=== PATIENT | female | born 1965 | race Caucasian/White ===

== ENCOUNTER 2017-12-05 20:00 | Inpatient (IN) | payer MEDICAID ==
[~2017-12-05 20:00] MED LIST: ENOX80DI9 SQ; OXYB5XL PO; PRAZ2 PO; SERT50TA12 PO; WARF5 PO
[2017-12-05 20:15] VITALS: BP 122/80
[2017-12-05] MEDS ORDERED: MAG HYDROX/AL HYDROX/SIMETH ES 30 ML SUSPENSION UDCUP PO PRN (21:30)
[2017-12-05] MEDS ORDERED: LORazepam 2 MG TABLET PO PRN (21:30)
[2017-12-05] MEDS ORDERED: HALOPERIDOL 5 MG TABLET PO PRN (21:30)
[2017-12-05] MEDS ORDERED: MAGNESIUM HYDROXIDE SUSPENSION 30 ML UDCUP PO PRN (21:30)
[2017-12-05] MEDS: OLANZapine 5 MG TABLET PO SCH (21:46)
[2017-12-06 08:30] VITALS: BP 123/72
[2017-12-06] MEDS ORDERED: PRAZOSIN HCL 2 MG CAPSULE PO SCH (09:00)
[2017-12-06] MEDS: OXYBUTYNIN CHLORIDE 5 MG ER TABLET PO SCH ×2 (09:02→16:16)
[2017-12-06] MEDS: FLUoxetine HCL 20 MG CAPSULE PO SCH (09:03)
[2017-12-06] MEDS: NICOTINE 21 MG/24 HOUR PATCH TD SCH (11:12)
[2017-12-06 11:18] VITALS: BP 106/77
[2017-12-06] MEDS: METHADONE HCL 10 MG TABLET PO SCH (11:20)
[2017-12-06] MEDS: WARFARIN SODIUM 5 MG TABLET PO SCH (16:16)
[2017-12-06] MEDS ORDERED: ACETAMINOPHEN 325 MG TABLET PO PRN (16:30)
[2017-12-06] MEDS: OLANZapine 5 MG TABLET PO SCH (20:56)
[2017-12-06 21:15] VITALS: BP 117/74
[2017-12-07 05:38] VITALS: BP 125/61
[2017-12-07 06:37] LABS: BASOPHILS % (AUTO) 1.2 % (0.0-2.0); EOSINOPHILS % (AUTO) 2.2 % (1.0-6.0); HEMATOCRIT 35.7 % (36-46); HEMOGLOBIN 11.9 g/dL (12.0-16.0); LYMPHOCYTES # (AUTO) 1.6 K/uL (1.0-4.8); LYMPHOCYTES % (AUTO) 30.1 % (22.0-44.0); MEAN CORPUSCULAR HEMOGLOBIN 26.1 pg (26.0-34.0); MEAN CORPUSCULAR HGB CONC 33.3 G/dL (31.0-37.0); MEAN CORPUSCULAR VOLUME 78 fL (80-100); MONOCYTES # (AUTO) 0.4 K/uL (0.1-1.0); MONOCYTES % (AUTO) 7.2 % (2.0-9.0); NEUTROPHILS # (AUTO) 3.1 K/uL (1.8-7.7); NEUTROPHILS % (AUTO) 59.3 % (40.0-70.0); PLATELET COUNT (AUTO) 218 K/uL (150-450); RED BLOOD CELL COUNT(AUTO) 4.55 MIL/uL (4.00-5.20); RED CELL DISTRIBUTION WIDTH 17.1 % (11.5-14.5)
[2017-12-07 06:42] LABS: PROTHROMBIN TIME 10.4 SEC (9.4-11.6)
[2017-12-07 07:20] LABS: HEMOGLOBIN A1C 5.4 % (4.5-6.2)
[2017-12-07 07:29] LABS: ALANINE AMINOTRANSFERASE 36 U/L (12-78); ALKALINE PHOSPHATASE 78 U/L (46-116); ANION GAP 8 mmol/L (8-16); ASPARTATE AMINOTRANSFERASE 18 U/L (15-37); BILIRUBIN,TOTAL 0.3 mg/dL (0.1-1.0); CALCIUM, TOTAL 8.5 mg/dL (8.8-10.5); CARBON DIOXIDE 26 mmol/L (22-29); CHLORIDE 103 mmol/L (98-107); CHOL/HDL RATIO 3.2 (3.9-5.7); CHOLESTEROL 143 mg/dL (131-200); GLOMERULAR FILTR. RATE CALC > 60 mL/min (>60); GLUCOSE,RANDOM 116 mg/dL (70-110); HDL CHOLESTEROL 45 mg/dL (40-60); LDL CHOL (CALC.) 75 mg/dL (0-130); POTASSIUM 4.1 mmol/L (3.5-5.1); SODIUM SERUM 137 mmol/L (136-145); TOTAL PROTEIN, SERUM 6.4 g/dL (6.4-8.2); TRIGLYCERIDES 113 mg/dL (15-150); UREA NITROGEN, BLOOD 14 mg/dL (7-18)
[2017-12-07 08:06] LABS: THYROID STIMULATING HORMONE 1.95 uIU/mL (0.36-3.74)
[2017-12-07] MEDS: OXYBUTYNIN CHLORIDE 5 MG ER TABLET PO SCH ×2 (08:32→17:00)
[2017-12-07] MEDS: METHADONE HCL 10 MG TABLET PO SCH (08:33)
[2017-12-07] MEDS: FLUoxetine HCL 20 MG CAPSULE PO SCH (08:33)
[2017-12-07] MEDS: NICOTINE 21 MG/24 HOUR PATCH TD SCH (08:35)
[2017-12-07 09:44] VITALS: BP 118/61
[2017-12-07] MEDS: WARFARIN SODIUM 5 MG TABLET PO SCH (17:52)
[2017-12-07 19:13] VITALS: BP 119/66
[2017-12-07] MEDS: OLANZapine 5 MG TABLET PO SCH (20:12)
[2017-12-08 07:19] LABS: INR 1.1 (0.9-1.1); PROTHROMBIN TIME 11.4 SEC (9.4-11.6)
[2017-12-08] MEDS: METHADONE HCL 10 MG TABLET PO SCH (08:08)
[2017-12-08] MEDS: FLUoxetine HCL 20 MG CAPSULE PO SCH (08:08)
[2017-12-08] MEDS: NICOTINE 21 MG/24 HOUR PATCH TD SCH (08:08)
[2017-12-08] MEDS: OXYBUTYNIN CHLORIDE 5 MG ER TABLET PO SCH ×2 (08:08→16:30)
[2017-12-08 09:57] VITALS: BP 99/58
[2017-12-08] MEDS: FLUoxetine HCL 10 MG CAPSULE PO SCH (12:30)
[2017-12-08 16:25] VITALS: BP 117/74
[2017-12-08] MEDS: ACETAMINOPHEN 325 MG TABLET PO PRN (16:30)
[2017-12-08] MEDS: WARFARIN SODIUM 5 MG TABLET PO SCH (16:30)
[2017-12-08] MEDS: HYPROMELLOSE 0.5% 15 ML OPHTHALMIC SOLUTION OU PRN (16:32)
[2017-12-08] MEDS: OLANZapine 5 MG TABLET PO SCH (21:11)
[2017-12-09 06:00] VITALS: BP 113/66
[2017-12-09 07:09] LABS: INR 1.4 (0.9-1.1); PROTHROMBIN TIME 14.2 SEC (9.4-11.6)
[2017-12-09 08:05] VITALS: BP 105/60
[2017-12-09] MEDS: HYPROMELLOSE 0.5% 15 ML OPHTHALMIC SOLUTION OU PRN (08:59)
[2017-12-09] MEDS: OXYBUTYNIN CHLORIDE 5 MG ER TABLET PO SCH ×2 (09:00→16:26)
[2017-12-09] MEDS: FLUoxetine HCL 10 MG CAPSULE PO SCH (09:00)
[2017-12-09] MEDS: NICOTINE 21 MG/24 HOUR PATCH TD SCH (09:00)
[2017-12-09] MEDS: METHADONE HCL 10 MG TABLET PO SCH (09:01)
[2017-12-09] MEDS: IBUPROFEN 400 MG TABLET PO PRN (09:32)
[2017-12-09 16:25] VITALS: BP 125/65
[2017-12-09] MEDS: WARFARIN SODIUM 5 MG TABLET PO SCH (16:26)
[2017-12-09] MEDS: ACETAMINOPHEN 325 MG TABLET PO PRN (16:26)
[2017-12-09] MEDS: OLANZapine 5 MG TABLET PO SCH (21:36)
[2017-12-10 06:13] VITALS: BP 114/69
[2017-12-10 08:54] VITALS: BP 103/54
[2017-12-10] MEDS: FLUoxetine HCL 10 MG CAPSULE PO SCH (08:57)
[2017-12-10] MEDS: NICOTINE 21 MG/24 HOUR PATCH TD SCH (08:57)
[2017-12-10] MEDS: HYPROMELLOSE 0.5% 15 ML OPHTHALMIC SOLUTION OU PRN (08:57)
[2017-12-10] MEDS: METHADONE HCL 10 MG TABLET PO SCH (08:57)
[2017-12-10] MEDS: OXYBUTYNIN CHLORIDE 5 MG ER TABLET PO SCH ×2 (08:58→17:11)
[2017-12-10] MEDS: IBUPROFEN 400 MG TABLET PO PRN (09:02)
[2017-12-10 16:35] VITALS: BP 136/79
[2017-12-10] MEDS: WARFARIN SODIUM 5 MG TABLET PO SCH (17:11)
[2017-12-10] MEDS: OLANZapine 5 MG TABLET PO SCH (21:40)
[2017-12-11 05:44] VITALS: BP 124/69
[2017-12-11] MEDS: IBUPROFEN 400 MG TABLET PO PRN (05:44)
[2017-12-11 07:01] LABS: INR 2.1 (0.9-1.1); PROTHROMBIN TIME 21.2 SEC (9.4-11.6)
[2017-12-11] MEDS: METHADONE HCL 10 MG TABLET PO SCH (08:25)
[2017-12-11] MEDS: NICOTINE 21 MG/24 HOUR PATCH TD SCH (08:26)
[2017-12-11] MEDS: OXYBUTYNIN CHLORIDE 5 MG ER TABLET PO SCH ×2 (08:26→16:30)
[2017-12-11] MEDS: FLUoxetine HCL 10 MG CAPSULE PO SCH (08:26)
[2017-12-11] MEDS: HYPROMELLOSE 0.5% 15 ML OPHTHALMIC SOLUTION OU PRN (08:30)
[2017-12-11 09:19] VITALS: BP 115/67
[2017-12-11] MEDS: WARFARIN SODIUM 5 MG TABLET PO SCH (16:30)
[2017-12-11 20:34] VITALS: BP 112/60
[2017-12-11] MEDS: OLANZapine 5 MG TABLET PO SCH (21:19)
[2017-12-11] MEDS: ZOLPIDEM TARTRATE 10 MG TABLET PO PRN (21:19)
[2017-12-12 06:30] VITALS: BP 120/72
[2017-12-12] MEDS: IBUPROFEN 400 MG TABLET PO PRN ×2 (06:33→21:51)
[2017-12-12 06:45] LABS: INR 2.9 (0.9-1.1); PROTHROMBIN TIME 29.4 SEC (9.4-11.6)
[2017-12-12] MEDS: FLUoxetine HCL 10 MG CAPSULE PO SCH (09:02)
[2017-12-12] MEDS: OXYBUTYNIN CHLORIDE 5 MG ER TABLET PO SCH ×2 (09:02→16:59)
[2017-12-12] MEDS: HYPROMELLOSE 0.5% 15 ML OPHTHALMIC SOLUTION OU PRN (09:03)
[2017-12-12] MEDS: NICOTINE 21 MG/24 HOUR PATCH TD SCH (09:04)
[2017-12-12] MEDS: METHADONE HCL 10 MG TABLET PO SCH (09:04)
[2017-12-12 09:31] VITALS: BP 107/69
[2017-12-12] MEDS ORDERED: WARFARIN SODIUM 2 MG TABLET PO SCH (17:00)
[2017-12-12 19:41] VITALS: BP 140/75
[2017-12-12] MEDS: OLANZapine 5 MG TABLET PO SCH (21:10)
[2017-12-12] MEDS: ZOLPIDEM TARTRATE 10 MG TABLET PO PRN (21:11)
[2017-12-12 21:48] VITALS: BP 121/71
[2017-12-12 22:48] VITALS: BP 126/73
[2017-12-13 07:07] LABS: INR 2.7 (0.9-1.1); PROTHROMBIN TIME 27.3 SEC (9.4-11.6)
[2017-12-13] MEDS: OXYBUTYNIN CHLORIDE 5 MG ER TABLET PO SCH (08:08)
[2017-12-13] MEDS: METHADONE HCL 10 MG TABLET PO SCH (08:08)
[2017-12-13] MEDS: FLUoxetine HCL 10 MG CAPSULE PO SCH (08:08)
[2017-12-13] MEDS ORDERED: PROZ10 PO (08:26)
[2017-12-13] MEDS ORDERED: OLAN5TAB2 PO (08:26)
[2017-12-13] MEDS: NICOTINE 21 MG/24 HOUR PATCH TD SCH (09:00)
== END 2017-12-13 10:49 | disposition home or self-care (01) | DRG 753 ==
LOC: 3EI 20:00
PROVIDERS: ADMIT Psychiatry & Neurology Psychiatry; ATTEND Psychiatry & Neurology Psychiatry
DX: F31.9 Bipolar disorder, unspecified (principal); G47.00 Insomnia, unspecified; R32 Unspecified urinary incontinence; Z81.8 Family history of other mental and behavioral disorders; Z86.718 Personal history of other venous thrombosis and embolism; Z88.8 Allergy status to other drugs, medicaments and biological substances
CPT/HCPCS: 83036; 84443; 87081